=== PATIENT | female | born 1940 | race Caucasian/White ===

== ENCOUNTER 2023-02-08 09:31 | Inpatient (IN) | payer MEDICARE, BC, SELFPAY ==
--- NOTE | ~2023-02-08 | CT_ITS ---
EXAMINATION: CT LE RT wo con, CT pelvis wo con DATE: 02/08/2023 14:57 INDICATION: Right hip and femur pain post fall TECHNIQUE: 1. High resolution computed tomography (CT) of the pelvis was performed without intravenous contrast. Additional sagittal and coronal reconstructions were performed. Automated exposure control and itera tive reconstruction technique were employed. The dose-length product was 233.52 mGy-cm. 2. High resolution CT of the right femur from the hip through the knee was performed without intraven ous contrast. Additional sagittal and coronal reconstructions were employed. Automated exposure contr ol and iterative reconstruction technique were employed. The dose length product was 1077.31 mGy-cm. COMPARISON: Radiographs dated 02/08/2023 FINDINGS: Right total hip arthroplasty which appears well seated in near-anatomic alignment. Subtle nondisplace d periprosthetic fracture extending obliquely from superolateral to inferomedial across the subtrocha nteric proximal right femur at the level of the mid third of the femoral stem. There is no abnormal l ucency surrounding the components. No other fractures identified in the pelvis or visualized right le g. 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 Mild disc bulges with only mi nimal to mild central canal stenosis at L4-L5 and L5-S1. Lumbar facet osteoarthritis, severe on the l eft and mild on the right at L4-L5 and severe on the right and moderate on the left at L5-S1. Mild os teoarthritis at the right knee with no joint effusion. No hip joint effusion. The uterus is not ident ified and has likely been surgically resected. Bladder is normal. Multiple sutures along the anterior pelvic wall. IMPRESSION: 1. Right total hip arthroplasty with nondisplaced subtrochanteric periprosthetic fracture. Reviewed, dictated and finalized at location A. IMPRESSION: 1. Right total hip arthroplasty with nondisplaced subtrochanteric periprostheti c fracture.
--- NOTE | ~2023-02-08 | XR_ITS ---
AP and lateral views of the right femur Clinical History: Pain Findings: No acute fracture or dislocation is seen. Osseous alignment is anatomic. Right hip arthropl asty in place. No hardware complication seen. Soft tissues are unremarkable. Impression: No acute abnormality seen. Right hip arthroplasty in place. Reviewed, dictated and finalized at location . Impression: No acute abnormality seen. Right hip arthroplasty in place.
--- NOTE | ~2023-02-08 | XR_ITS ---
EXAMINATION: XR femur RT min 2V DATE: 02/10/2023 08:09 INDICATION: Subtrochanteric fracture of the proximal right femur TECHNIQUE: AP and lateral views of the right femur were obtained. COMPARISON: CT dated 02/08/2023 FINDINGS: Noncemented right total hip arthroplasty with no periprosthetic lucency. Nearly indiscernible nondisp laced oblique subtrochanteric fracture of the proximal right femur with subtle linear lucency. No oth er fractures identified. Normal alignment and nonweightbearing joint space at the right knee with phy siologic amount fluid at the suprapatellar pouch of the right knee. Skin skye project over the rig ht hemipelvis. IMPRESSION: 1. Right total hip arthroplasty with nondisplaced periprosthetic fracture at the subtrochanteric prox imal right femoral diaphysis. Reviewed, dictated and finalized at location A. IMPRESSION: 1. Right total hip arthroplasty with nondisplaced periprosthetic fracture at th e subtrochanteric proximal right femoral diaphysis.
--- NOTE | ~2023-02-08 | XR_ITS ---
AP view of the pelvis Clinical history: Pain Findings: No acute fracture or dislocation is seen. Right hip arthroplasties in place. No hardware co mplication seen. Left hip joint space is preserved. Soft tissues are unremarkable. Impression: No acute abnormality seen. Right hip arthroplasty in place. Reviewed, dictated and finalized at location . Impression: No acute abnormality seen. Right hip arthroplasty in place.
[2023-02-08 09:40] VITALS: BP 107/58; PULSE 63; RESP 16; TEMP 36.6; O2SAT 98
--- NOTE | 2023-02-08 13:33 | ED.FALL ---
HPI - Fall General Chief Complaint: Fall Stated Complaint: fall/right hip pain Time Seen by Provider: 02/08/23 13:33 Source: patient and family Mode of arrival: wheelchair Limitations: no limitations History of Present Illness HPI Narrative: Gerri is an 82-year-old female patient presenting to the clinic today with complaints of falling out of bed this morning and landing on her right hip. She is reporting right hip and right femur pain. Does have some bruising noted to the dorsal right femur. Rates pain currently a 10/10 when moving. Related Data Allergies Allergy/AdvReac Type Severity Reaction Status Date / Time acetaminophen Allergy Mild Verified 09/25/08 10:58 aspirin Allergy Mild Verified 09/25/08 10:58 clarithromycin Allergy Mild Verified 09/25/08 10:58 codeine Allergy Mild Verified 09/25/08 10:58 meperidine Allergy Mild Verified 09/25/08 10:58 morphine Allergy Mild Verified 09/25/08 10:58 propoxyphene Allergy Mild Verified 09/25/08 10:58 Sulfa (Sulfonamide Allergy Mild Verified 09/25/08 10:58 Antibiotics) sumatriptan Allergy Mild Verified 09/25/08 10:58 PCN Allergy Mild Uncoded 02/10/08 18:41 Review of Systems Review of Systems: Pertinent positives per HPI. Patient denies any fever, chills, rash, headache, visual changes, dizziness, cough, runny nose, sore throat, shortness of breath, chest pain, palpitations, nausea, vomiting, diarrhea, constipation, abdominal pain, or any urinary issues. Exam Narrative: General: Well-developed, well nourished, in no apparent distress Head: Normocephalic, atraumatic. Cardio: Regular rate and rhythm, s1 and s2 normal, no murmur appreciated. Resp: Clear to auscultation bilaterally, no rhonchi, rales, wheezing or rubs. Musculoskeletal: No deformity, 2 small areas the size of a golf ball of bruising noted to the right proximal femur, tender to palpation over the dorsal femur and the right lateral hip, unable to flex right hip with out a great amount of pain in the right femur and hip, muscle strength strong and equal, peripheral pulse strong, no edema, no cyanosis Course Vital Signs Vital signs: Vital Signs Temperature 36.6 C 02/08/23 09:40 Pulse Rate 63 02/08/23 09:40 Respiratory Rate 16 02/08/23 09:40 Blood Pressure 107/58 L 02/08/23 09:40 Pulse Oximetry 98 02/08/23 09:40 Temperature 36.6 C 02/08/23 09:40 Pulse Rate 63 02/08/23 14:01 Respiratory Rate 20 02/08/23 14:01 Blood Pressure 176/78 H 02/08/23 14:01 Pulse Oximetry 98 02/08/23 14:01 MDM - Fall MDM Narrative Medical decision making narrative: At the time of visit patient is resting on the exam table. X-rays of the right femur and right hip were performed and were negative for any sign of fracture or malalignment. Patient is rating her pain currently a 10 at 10 upon palpation. Will get a CT to rule out a stress fracture to the pelvis and right lower extremity. CT shows a right total hip arthroplasty with a nondisplaced subtrochanteric periprosthetic fracture. EKG shows Sinus rhythm with pvcs- HR 68. CBC and CMP completed. Contacted Dr. Callahan- orthopedic provider who had completed the surgery back in the . Discuss treatment with the patient and he recommends the patient be admitted to the hospitalist and consult Dr. Serrano. Contacted Dr. Vasquez and he accepts patient for inpatient admit Differential Diagnosis Differential diagnosis: Likely other ( pelvis fracture, femur fracture, hip contusion, femur contusion , displaced arthroplasty) ECG Data EKG #1: Attestation: I personally reviewed and interpreted this ECG as follows: ECG completion date: 02/08/23 Interpretation: EKG shows sinus rhythm with frequent PVCs with an incomplete right bundle-branch block. Heart rate 60 beats per minute, SC interval is 154 milliseconds, QRS durations and 96 milliseconds, QT -QTC is 379-396 muscle Discharge Plan Discharge Clinical Impression:
[2023-02-08] MEDS: traMADol HCL (*CRX) 25 MG TABLET PO (13:56)
[2023-02-08] MEDS: ONDANSETRON HCL ODT 4 MG TABLET PO (13:56)
[2023-02-08 14:01] VITALS: BP 176/78; PULSE 63; RESP 20; O2SAT 98
--- NOTE | 2023-02-08 16:25 | ECG_ITS ---
Measurements Intervals [place] Rate: 68 P: -20 WA: 154 QRS: -19 QRSD: 96 T: 62 QT: 379 QTc: 404 Interpretive Statements SINUS RHYTHM WITH FREQUENT VENTRICULAR PREMATURE COMPLEXES INCOMPLETE RIGHT BUNDLE BRANCH BLOCK [90+ ms QRS DURATION, TERMINAL R IN V1/V2, 40+ ms S IN I/aVL/V4/V5/V6] ABNORMAL ECG NO PREVIOUS ECG AVAILABLE FOR COMPARISON Electronically Signed On 02-09-2023 9:15:08 CDT by Tripp Unger M.D.
[2023-02-08 17:05] LABS: Eosinophils Percent Auto 0.2 % (0-4.4); Hematocrit 33.2 % (37.0-47.0); Hemoglobin 10.7 g/dL (12.0-15.0); Immature Granulocyte Absolute 0.01 K/mm3 (0.00-0.031); Immature Granulocyte Percent A 0.2 % (0-0.5); Lymphocytes Absolute Auto 1.03 K/mm3 (0.9-3.2); Lymphocytes Percent Auto 17.4 % (18.3-44.2); Mean Corpuscular HGB Conc 32.2 g/dl (32-36); Mean Corpuscular Hemoglobin 30.2 pg (26-34); Mean Corpuscular Volume 93.8 fl (80-100); Mean Platelet Volume 10.9 fl (7.4-10.4); Monocytes Absolute Auto 0.6 K/mm3 (0.1-0.6); Monocytes Percent Auto 9.8 % (2.6-8.5); Neutrophils Absolute Auto 4.3 K/mm3 (1.3-6.7); Neutrophils Percent Auto 72.4 % (45.5-73.1); Platelet Count Result 171 k/mm3 (150-375); Red Blood Count 3.54 M/mm3 (4.2-5.4); Red Cell Distribution Width 15.8 % (11.5-14.5); White Blood Count 5.9 K/mm3 (4.5-10.0)
[2023-02-08 17:16] LABS: Alanine Aminotransferase 21 U/L (6-35); Albumin Level 4.6 g/dL (3.5-5.1); Alkaline Phosphatase 86 U/L (38-126); Anion Gap 7 mmol/L (8-16); Aspartate Amino Transferase 38 U/L (14-36); Bilirubin,Total 0.9 mg/dL (0.2-1.3); Blood Urea Nitrogen 20 mg/dL (7-17); Calcium 9.3 mg/dL (8.4-10.2); Carbon Dioxide 27 mmol/L (22-30); Chloride 104 mmol/L (98-107); Estimated CRCL calculation 62 ml/min; Estimated Glomerular Filt Rate > 60; Glucose 101 mg/dL (65-110); Sodium 138 mmol/L (137-145)
--- NOTE | 2023-02-08 18:04 | PM.IMHP ---
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 Patient fell out of bed in the morning, landed on right hip, sustained severe right hip pain. Patient cannot stand up and walk. Patient denies hitting head, loss consciousness, chest pain, shortness rest, palpitation. Patient was brought to ED for evaluation treatment. In the ED, patient was found to have severe pain over right hip, uncontrolled hypertension, anemia 10.7, elevated BUN. CT was done, and it revealed right total hip arthroplasty with nondisplaced subtrochanteric periprosthetic fracture. EKG shows sinus rhythm with frequent PVCs with an incomplete right bundle-branch block.? Heart rate 60 beats per minute. ER physician consulted orthopedic surgeon Dr. Callahan- orthopedic provider who had completed the surgery back in the .? he recommends the patient be admitted to the hospitalist and consult Dr. Serrano.?? Review of Systems Review of Systems: RS negative except above PMFSH Social History Social History Smoking status: Never smoker Alcohol intake: never Substance use: never Lack of Transportation: No Lack of Food: Never True Current Housing: I Have Housing Concerned About Future Housing: No Difficulty Paying Gas/Electric Bills: No Difficulty Paying for Meds: No Currently Unemployed: No Education: High School Diploma/GED Difficulty w/ Childcare or Family Care: No Spiritual care concerns: No Meds Home Medications and Allergies Home Medications Medication Instructions Recorded Confirmed Type allopurinol 300 mg tablet 300 mg PO DAILY 02/08/23 02/08/23 History citalopram 10 mg tablet 10 mg PO DAILY 02/08/23 02/08/23 History clopidogrel 75 mg tablet 75 mg PO DAILY 02/08/23 02/08/23 History colchicine (gout) 0.6 mg tablet 0.6 mg PO DAILY 02/08/23 02/08/23 History (Colcrys) levothyroxine 100 mcg tablet 100 mcg PO DAILY 02/08/23 02/08/23 History pantoprazole 40 mg tablet,delayed 40 mg PO QAM 02/08/23 02/08/23 History release rosuvastatin 40 mg tablet 20 mg PO DAILY 02/08/23 02/08/23 History Allergies Allergy/AdvReac Type Severity Reaction Status Date / Time acetaminophen Allergy Mild Verified 09/25/08 10:58 aspirin Allergy Mild Verified 09/25/08 10:58 clarithromycin Allergy Mild Verified 09/25/08 10:58 codeine Allergy Mild Verified 09/25/08 10:58 meperidine Allergy Mild Verified 09/25/08 10:58 morphine Allergy Mild Verified 09/25/08 10:58 propoxyphene Allergy Mild Verified 09/25/08 10:58 Sulfa (Sulfonamide Allergy Mild Verified 09/25/08 10:58 Antibiotics) sumatriptan Allergy Mild Verified 09/25/08 10:58 PCN Allergy Mild Uncoded 02/10/08 18:41 Vital Signs Vital Signs - 24 hr 02/08/23 09:40 02/08/23 14:01 Temperature 97.8 F Pulse Rate 63 63 Respiratory Rate 16 20 Blood Pressure 107/58 L 176/78 H Pulse Oximetry 98 98 Exam Narrative: GENERAL: Pleasant, in no acute distress. Well-nourished. - EYES: EOMI. Anicteric. - HENT: Moist mucous membranes. - LUNGS: Clear to auscultation bilaterally, no wheezing, rhonchi, or rales. - CARDIOVASCULAR: Regular rate and rhythm. No murmur. No JVD. - ABDOMEN: Soft, non-tender and non-distended. No palpable masses. - EXTREMITIES: No edema. Peripheral pulses 2+. 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 Appropriate mood and affect. - SKIN: No rashes or lesions. Warm. - LYMPH: No cervical lymphadenopathy. H&P: Results Labs Labs: Short CBC 02/08/23 Range/Units
[2023-02-08] MEDS: LACTATED RINGERS 1,000 ML 100 ML IV CONT (19:44)
[2023-02-08] MEDS: IBUPROFEN IV 400 MG in SODIUM CHLORIDE 0.9% IV 100 ML 208 MG IVPB (19:45)
[2023-02-08] MEDS: traMADol HCL (*CRX) 50 MG TABLET PO (19:45)
[2023-02-08] MEDS: ACETAMINOPHEN 325 MG TABLET 650 MG PO (19:45)
--- NOTE | 2023-02-08 20:05 | ADMGEN ---
This patient, Gerri Rodriguez, was admitted to Medical Room 348-01. Patient/family oriented to hospital policies and general routines including ID bracelet, bed and alarms, visiting hours, pain management, procedures, bathroom and other care routines, personal items, smoking policy, room service/diet, and visiting hours. Information on how to activate the Rapid Response Team has been discussed. Patient/Family are encouraged to report perceived risks to care and to ask questions if they do not understand what they are told or what they should do.
[2023-02-08 20:11] VITALS: BP 157/63; PULSE 64; RESP 16; TEMP 36.9; O2SAT 96
[2023-02-08 21:06] VITALS: O2SAT 96
[2023-02-08 21:07] LABS: Iron 123 ug/dL (37-170)
--- NOTE | 2023-02-08 21:10 | PM.CNOR ---
Assessment and Plan Assessment and plan (1) Periprosthetic fracture around internal prosthetic hip joint: Code(s): M97.8XXA - Periprosthetic fracture around other internal prosthetic joint, initial encounter; Z96.649 - Presence of unspecified artificial hip joint Status: Acute Assessment and Plan: Patient is an 82-year-old female that I have not seen for many years. She is admitted after falling out of bed. She lives at home by herself. She fell out of bed landed onto her right hip and had severe pain in the proximal right thigh hip area cannot tolerate any slight movement of the right lower extremity which causes intense exacerbation of her pain. She was brought to the [facility] Emergency Room where she had a thorough evaluation. X-rays of the right hip initially were negative. CT scan of right femur and pelvis was obtained and this shows nondisplaced fracture lines in the subtrochanteric region of the right femur. There is a long femoral stem in place in growth and the fracture lines are in the mid portion of the stem. The distal 40% of the stem shows no signs of loosening from the shaft. The fracture lines are oblique and completely nondisplaced. I suspect these travel to the proximal femur but where they come out in the region of the intertrochanteric and femoral neck calcar area is unclear. She has no fracture around the acetabular component which is normally aligned and well fixed. She has a history of a stroke and mild hemiplegia affecting the right side and expressive aphasia. She takes Plavix for this for prophylaxis against further stroke. The stroke was approximately 30 years ago. She had undergone total hip replacement in [place] and some in 1998 after a dislocation of her right hip replacement which had dislocated multiple times and she underwent revision surgery. This was in 1998 and the reason revision surgery was done by myself and I do not have an operative note for that but I believe that the acetabular component was revised to improve stability and she healed without complication and she has had no further dislocations fortunately. She has not had any problems with the right hip so I have not seen her in follow-up for at least 10 years. As the fracture lines are nondisplaced, it is possible that the femoral component is still stable inside the femoral shaft with there is no fracture. This is be considered a type B periprosthetic fracture nondisplaced. I have explained her that if the femoral component demonstrates that it is loose relative to the shaft and rotates, she would need a complex revision surgery and internal fixation of the fracture with a very long stem prosthesis and I would refer her to of the tertiary care hospitals for this as this is outside my area of expertise. However, I think there is a very good chance that these fracture lines will heal over the next 6 weeks and the stem is not loose the fracture lines heal she may do very well, become asymptomatic and not need a major revision surgery. She states she has a history of DVT couple of years ago. This was in her leg and she had marked leg swelling associated with that was on strong blood thinner for period of time. She refuses to wear the SCD on the right leg because when it inflate sick causes movement of the leg which causes severe pain on the right proximal thigh therefore we will start her on some anticoagulation tonight. She has a hemoglobin at admission of 10.7 suggesting chronic anemia. Normal MCV. Her anemia is of uncertain etiology at this time. Her platelets are 171,000. White count normal at 5.9. Creatinine is 0.6. Creatinine clearance 62. Iron was normal ferritin TIBC are pending. Slight elevation of AST at 38 ALT normal at 21 alk-phos normal at 86. Albumin normal at 4.6. Because she is on Plavix, and she is elderly, I am reluctantant to place her on a factor 10 a inhibitor for DVT prophylaxis which might increase the risk
[2023-02-08 21:42] LABS: Percent Iron Saturation 26 % (20-50)
[2023-02-08] MEDS: ENOXAPARIN 30 MG/0.3 ML SYRINGE SUB-Q (21:47)
[2023-02-08] MEDS: oxyCODONE/ACETAMINOPHEN (*CRX) 5-325 MG TABLET 1 TABLET PO (21:47)
[2023-02-08] MEDS: ONDANSETRON INJ 4 MG/2 ML VIAL IV PUSH (22:40)
[2023-02-09] MEDS: traMADol HCL (*CRX) 50 MG TABLET PO ×2 (00:01→03:42)
[2023-02-09] MEDS: IBUPROFEN IV 400 MG in SODIUM CHLORIDE 0.9% IV 100 ML 208 MG IVPB (01:50)
[2023-02-09 04:40] VITALS: BP 151/65; PULSE 55; RESP 16; TEMP 36.9; O2SAT 93
[2023-02-09] MEDS: ONDANSETRON INJ 4 MG/2 ML VIAL IV PUSH (05:39)
[2023-02-09] MEDS: HYDROmorphone HCL INJ (*CRX) 1 MG/ML SYR 0.5 MG IV PUSH (05:39)
[2023-02-09 05:56] LABS: Anion Gap 9 mmol/L (8-16); Blood Urea Nitrogen 17 mg/dL (7-17); Calcium 9.2 mg/dL (8.4-10.2); Carbon Dioxide 26 mmol/L (22-30); Chloride 103 mmol/L (98-107); Estimated CRCL calculation 54 ml/min; Estimated Glomerular Filt Rate > 60; Glucose 114 mg/dL (65-110); Potassium 3.8 mmol/L (3.4-5.0); Sodium 138 mmol/L (137-145)
--- NOTE | 2023-02-09 09:07 | PC.NURSE ---
Patient is vomiting nonstop. Manager Entry spoke with daughter Halina and she stated that patient does not tolerate pain medication well at all. She stated that patient can really only take tylenol as all other pain medication makes her extremely nauseous and vomit. Manager Entry called hospitalist Konstantin and updated him on the situation. Nausea medications to be order. Manager Entry is holding PO morning medications at this time as patient is vomiting.
[2023-02-09] MEDS: PROCHLORPERAZINE EDISYLATE 10 MG/2 ML VIAL IV PUSH (09:20)
--- NOTE | 2023-02-09 11:21 | PM.IMPN ---
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 PT OT consulted. (2) Elevated blood pressure reading: Code(s): R03.0 - Elevated blood-pressure reading, without diagnosis of hypertension Status: Acute Assessment and Plan: Blood pressures stable but elevated. Continue home medications. Blood pressure reviewed on 02/09 (3) Anemia: Code(s): D64.9 - Anemia, unspecified Status: Acute Assessment and Plan: Normocytic mild anemia hemoglobin 10.7 hematocrit 33.2. Continue to monitor. No prior records available for review. If this drops, consider anemia labs (4) GERD (gastroesophageal reflux disease): Code(s): K21.9 - Gastro-esophageal reflux disease without esophagitis Status: Acute Assessment and Plan: Continue home medication (5) Acquired hypothyroidism: Code(s): E03.9 - Hypothyroidism, unspecified Status: Acute Assessment and Plan: Continue home medication (6) Gout: Code(s): M10.9 - Gout, unspecified Status: Acute Assessment and Plan: Continue home medication no active flare noted at this Plan Difficult to manage pain be causes pain medication makes her vomit. Antiemetics Zofran and Compazine are available p.r.n. PT and OT for rehabilitation recommendations Orthopedics consult appreciate recommendations. Diet: Regular VTE prophylaxis: Lovenox renally adjusted GI prophylaxis: Pantoprazole Medication reconciliation: Completed Analgesia: P.r.n. available, complicated due to side effects Anti emetics: Zofran and Compazine p.r.n. Time Spent With Patient Time with patient: 25 - 35 minutes Subjective Date/time seen: 02/09/23 11:21 Interval history: Patient was sleeping when evaluated, awakens easily to voice. Patient reports that she fell injuring her right hip. She denies any other injury. She states that she has been vomiting a lot because pain medications make her sick to her stomach. Otherwise patient has no complaints. Therapy has been consulted. Orthopedics was consulted will managed non operatively with 6-8 weeks therapy. Review of Systems Review of Systems: All systems reviewed & are unremarkable except as noted in HPI and below Exam Narrative: GENERAL: Pleasant, in no acute distress. Well-nourished. - EYES: EOMI. Anicteric. - HENT: Moist mucous membranes. No cervical lymphadenopathy. - LUNGS: Clear to auscultation bilaterally, no wheezing, rhonchi, or rales. - CARDIOVASCULAR: Regular rate and rhythm. No murmur. No JVD. - ABDOMEN: Soft, non-tender and non-distended. No palpable masses. - EXTREMITIES: No edema. Peripheral pulses 2+. 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 Appropriate mood and affect. - SKIN: No rashes or lesions. Warm. Objective Data Vital Signs Vital Signs: Vital Signs - 24 hr 02/08/23 14:01 02/08/23 20:11 02/08/23 20:00 Temperature 36.9 C Pulse Rate 63 64 Respiratory Rate 20 16 Blood Pressure 176/78 H 157/63 H Pulse Oximetry 98 96 Oxygen Delivery Room Air 02/08/23 21:06 02/09/23 04:40 02/09/23 09:20 Temperature 36.9 C Pulse Rate 55 L Respiratory Rate 16 Blood Pressure 151/65 H Pulse Oximetry 96 93 Oxygen Delivery Room Air Room Air Intake/Output Intake/Output: Intake & Output 02/06/23 02/07/23 02/08/23 02/09/23 23:59 23:59 23:59 23:59 Intake Total 104 404 Output Total 200 550 Balance -96 -146 Meds/Results Medication
[2023-02-09] MEDS: LACTATED RINGERS 1,000 ML 100 ML IV CONT (13:40)
[2023-02-09 13:49] LABS: Vitamin D 25 Hydroxy 34.2 ng/mL
[2023-02-09 14:00] VITALS: BP 147/59; PULSE 62; RESP 14; TEMP 36.1; O2SAT 90
--- NOTE | 2023-02-09 16:13 | PM.PNORT ---
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 After falling out of bed and sustained a nondisplaced periprosthetic right proximal femur fracture around a long-stem femoral component was placed in the mid almost [address] scan shows no signs of displacement of femoral component or fragments. It is unclear whether this is stable or not. She was unable to dangle on the side of the bed today due to pain. Her daughter has advised the nurses not to give the IV ibuprofen because she has had difficulty with oral ibuprofen causing stomach pain in the past. She has been started on omeprazole to protect your stomach. Her daughter understands that the ibuprofen has been ordered IV which may not bother her stomach but she is adamant against it right now. She has not been tolerating the 50 mg tramadol. I have reduced her tramadol to 25 mg every 6 hours. She is taking the Tylenol. We will try to give her her pills with food to help with her stomach. On exam today she was able to extend her knee actively and wiggle her right ankle into dorsiflexion plantar flexion with some vigor with much less discomfort and the proximal thigh today than yesterday. Hopefully this is a sign that her extreme pain is starting to subside and hopefully she will be able to tolerate sitting up in bed and angling tomorrow. Subjective Subjective Date/Time Seen: 02/09/23 16:13 Objective Data Vital Signs Vital Signs: Vital Signs - 24 hr 02/08/23 20:11 02/08/23 20:00 02/08/23 21:06 Temperature 36.9 C Pulse Rate 64 Respiratory Rate 16 Blood Pressure 157/63 H Pulse Oximetry 96 96 Oxygen Delivery Room Air Room Air 02/09/23 04:40 02/09/23 09:20 Temperature 36.9 C Pulse Rate 55 L Respiratory Rate 16 Blood Pressure 151/65 H Pulse Oximetry 93 Oxygen Delivery Room Air Intake/Output Intake/Output: Intake & Output 02/06/23 02/07/23 02/08/23 02/09/23 23:59 23:59 23:59 23:59 Intake Total 104 1524 Output Total 200 550 Balance -96 974 Meds/Results Medications: Active Medications Generic Name Dose Route Start Last Admin Trade Name Glenroy PRN Reason Stop Dose Admin Acetaminophen 650 mg 02/08/23 20:00 02/09/23 15:02 Acetaminophen 325 Mg Tablet PO Not Given Q6H [facility] Allopurinol 300 mg 02/09/23 09:00 02/09/23 09:06 Allopurinol 300 Mg Tablet PO Not Given DAILY [facility] Calcium Citrate 1 tablet 02/09/23 17:00 Calcium Citrate 315 Mg/Vitamin D 250 Units Tab PO BID [facility] Citalopram Hydrobromide 10 mg 02/09/23 09:00 02/09/23 09:06 Citalopram Hydrobromide 10 Mg Tablet PO Not Given DAILY [facility] Clopidogrel Bisulfate 75 mg 02/09/23 09:00 02/09/23 09:06 Clopidogrel Bisulfate 75 Mg Tablet PO Not Given DAILY [facility] Colchicine 0.6 mg 02/10/23 09:00 Colchicine 0.6 Mg Tablet PO DAILY [facility] Enoxaparin Sodium 30 mg 02/08/23 21:25 02/09/23 09:06 Enoxaparin 30 Mg/0.3 Ml Syringe SUB-Q Not Given Q12HR [facility] Hydromorphone HCl 0.5 mg 02/08/23 18:32 02/09/23 05:39 Hydromorphone Hcl Inj (*Crx) 1 Mg/Ml Syr IV PUSH 0.5 mg Q4H PRN Administration Pain Rated 7-10 Ibuprofen 400 mg/ Sodium 104 mls @ 208 mls/hr 02/08/23 20:00 02/09/23 13:59 Chloride IVPB Not Given Q6H [facility] Lactated Ringer's 1,000 mls @ 100 mls/hr 02/08/23 18:30 02/09/23 13:40 Lr - Lactated Ringers Iv IV CONT Infused .Q10H [facility] Infusion Levothyroxine Sodium 100 mcg 02/09/23 06:30 02/09/23 05:43 Levothyroxine Sodium 100 Mcg Tablet PO Not Given DAILY@0630 [facility] Naloxone HCl 0.1 mg 02/08/23 18:30 Naloxone Hcl 0.4 Mg/Ml Vial IV PUSH Q2M PRN Opiate Reversal Ondaarline
[2023-02-09] MEDS: traMADol HCL (*CRX) 25 MG TABLET PO (17:16)
[2023-02-09] MEDS: SENNA/DOCUSATE SODIUM TABLET 2 TAB PO (17:16)
[2023-02-09 20:00] VITALS: PULSE 62; RESP 14; O2SAT 90
[2023-02-09] MEDS: ENOXAPARIN 30 MG/0.3 ML SYRINGE SUB-Q (21:15)
[2023-02-09] MEDS: ACETAMINOPHEN 325 MG TABLET 650 MG PO (21:17)
[2023-02-09 21:49] VITALS: BP 164/71; PULSE 65; RESP 16; TEMP 37.4; O2SAT 93
[2023-02-10] MEDS: traMADol HCL (*CRX) 25 MG TABLET PO ×5 (00:31→23:48)
[2023-02-10] MEDS: LEVOTHYROXINE SODIUM 100 MCG TABLET PO (05:50)
[2023-02-10 05:52] LABS: Anion Gap 5 mmol/L (8-16); Blood Urea Nitrogen 10 mg/dL (7-17); Calcium 9.2 mg/dL (8.4-10.2); Carbon Dioxide 31 mmol/L (22-30); Chloride 101 mmol/L (98-107); Estimated CRCL calculation 54 ml/min; Estimated Glomerular Filt Rate > 60; Glucose 100 mg/dL (65-110); Potassium 3.4 mmol/L (3.4-5.0); Sodium 137 mmol/L (137-145)
[2023-02-10 06:00] VITALS: BP 153/55; PULSE 64; RESP 16; TEMP 36.5; O2SAT 94
--- NOTE | 2023-02-10 07:22 | PM.PNORT ---
Progress Note: A&P Assessment and Plan (1) Periprosthetic fracture around internal prosthetic hip joint: Code(s): M97.8XXA - Periprosthetic fracture around other internal prosthetic joint, initial encounter; Z96.649 - Presence of unspecified artificial hip joint Status: Acute Assessment and Plan: Patient reports significantly less pain today and she does move her right knee a little bit and her ankle quite well. With her expressive aphasia it is a little bit difficult to communicate with her. She does seem to understand clearly. She did say that her pain ?is better?. She is going to try to dangle today. I asked her if she was able to tolerate the 25 mg dose of tramadol last night that we ordered for her and she said no but I see that it was given to her at 5:50 a.m. this morning and she is not having complaints of nausea now and she is also taking Tylenol. We will discontinue the other medications including the ibuprofen Dilaudid and oxycodone that she has ordered p.r.n.. I am going to check some x-rays of the right femur today to make sure there is still no displacement. I think it is very unlikely she is going to be able to actually transfer so I am going to ask the nurses to try doing the Sukhi lift today if she is able to sit and dangle tolerate that. I will be out of town tomorrow morning coming back in to town the evening the following day. Dr. Archer is going to cover for me. Will order a CBC tomorrow morning and will need a CBC 1 week after that to check her platelets since we are using Lovenox. Subjective Subjective Date/Time Seen: 02/10/23 07:22 Objective Data Vital Signs Vital Signs: Vital Signs - 24 hr 02/09/23 09:20 02/09/23 14:00 02/09/23 20:00 Temperature 36.1 C L Pulse Rate 62 62 Respiratory Rate 14 14 Blood Pressure 147/59 H Pulse Oximetry 90 90 Oxygen Delivery Room Air Room Air 02/09/23 21:49 02/10/23 06:00 Temperature 37.4 C 36.5 C Pulse Rate 65 64 Respiratory Rate 16 16 Blood Pressure 164/71 H 153/55 H Pulse Oximetry 93 94 Oxygen Delivery Intake/Output Intake/Output: Intake & Output 08/2802/08/23 02/09/23 02/10/23 23:59 23:59 23:59 23:59 Intake Total 104 1794 600 Output Total 814 597 3825 Balance -96 944 -550 Meds/Results Medications: Active Medications Generic Name Dose Route Start Last Admin Trade Name Freclarisa PRN Reason Stop Dose Admin Acetaminophen 650 mg 02/08/23 20:00 02/10/23 01:10 Acetaminophen 325 Mg Tablet PO Not Given Q6H [facility] Allopurinol 300 mg 02/09/23 09:00 02/09/23 09:06 Allopurinol 300 Mg Tablet PO Not Given DAILY [facility] Calcium Citrate 1 tablet 02/09/23 17:00 02/09/23 17:16 Calcium Citrate 315 Mg/Vitamin D 250 Units Tab PO 1 tablet BID [facility] Administration Citalopram Hydrobromide 10 mg 02/09/23 09:00 02/09/23 09:06 Citalopram Hydrobromide 10 Mg Tablet PO Not Given DAILY [facility] Clopidogrel Bisulfate 75 mg 02/09/23 09:00 02/09/23 09:06 Clopidogrel Bisulfate 75 Mg Tablet PO Not Given DAILY [facility] Colchicine 0.6 mg 02/10/23 09:00 Colchicine 0.6 Mg Tablet PO DAILY [facility] Enoxaparin Sodium 30 mg 02/08/23 21:25 02/09/23 21:15 Enoxaparin 30 Mg/0.3 Ml Syringe SUB-Q 30 mg Q12HR [facility] Administration Hydromorphone HCl 0.5 mg 02/08/23 18:32 02/09/23 05:39 Hydromorphone Hcl Inj (*Crx) 1 Mg/Ml Syr IV PUSH 0.5 mg Q4H PRN Administration Pain Rated 7-10 Ibuprofen 400 mg/ Sodium 104 mls @ 208 mls/hr 02/08/23 20:00 02/10/23 01:10 Chloride IVPB Not Given Q6H [facility] Lactated Ringer's 1,000 mls @ 100 mls/hr 02/08/23 18:30 02/09/23 13:40 Lr - Lactated Ringers Iv IV CONT 100 mls/hr .Q10H [facility] Administration Levothyroxine Sodium 100 mcg 02/09/23 06:30 02/10/23 05:50 Levothyroxine Sodium 100 Mcg Tablet PO 100 mcg DAILY@0630 [facility] Administration Naloxone HCl 0.1 mg 02/08/23 18:30 Naloxone Hcl 0.4 Mg/Ml Vial IV PUSH Q2M PRN
--- NOTE | 2023-02-10 07:34 | PC.NURSE ---
Director Instructional Material called OB admissions and added this patient to Dr. Archer's list as Dr. Romreo will be out of town this weekend.
--- NOTE | 2023-02-10 07:49 | PC.NURSE ---
Patient off of unit to XRAY
--- NOTE | 2023-02-10 08:11 | PC.NURSE ---
Patient returned to unit from XRAY
[2023-02-10] MEDS: ENOXAPARIN 30 MG/0.3 ML SYRINGE SUB-Q ×2 (08:46→21:01)
[2023-02-10] MEDS: SENNA/DOCUSATE SODIUM TABLET 2 TAB PO (08:46)
[2023-02-10] MEDS: allopurinoL 300 MG TABLET PO (08:46)
[2023-02-10] MEDS: CLOPIDOGREL BISULFATE 75 MG TABLET PO (08:46)
[2023-02-10] MEDS: ACETAMINOPHEN 325 MG TABLET 650 MG PO ×3 (08:46→20:59)
[2023-02-10] MEDS: CITALOPRAM HYDROBROMIDE 10 MG TABLET PO (08:46)
[2023-02-10] MEDS: COLCHICINE 0.6 MG TABLET PO (08:46)
[2023-02-10] MEDS: PANTOPRAZOLE 40 MG TABLET PO (08:47)
[2023-02-10] MEDS: ROSUVASTATIN 10 MG TABLET 20 MG PO (08:47)
[2023-02-10] MEDS: polyethylene glycoL 3350 17 GM POWD.PACK PO (08:47)
--- NOTE | 2023-02-10 11:07 | PM.IMPN ---
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 PT OT consulted. (2) Elevated blood pressure reading: Code(s): R03.0 - Elevated blood-pressure reading, without diagnosis of hypertension Status: Acute Assessment and Plan: Blood pressures stable but elevated. Continue home medications. Blood pressure reviewed on 02/09 (3) Anemia: Code(s): D64.9 - Anemia, unspecified Status: Acute Assessment and Plan: Normocytic mild anemia hemoglobin 10.7 hematocrit 33.2. Continue to monitor. No prior records available for review. If this drops, consider anemia labs (4) GERD (gastroesophageal reflux disease): Code(s): K21.9 - Gastro-esophageal reflux disease without esophagitis Status: Acute Assessment and Plan: Continue home medication (5) Acquired hypothyroidism: Code(s): E03.9 - Hypothyroidism, unspecified Status: Acute Assessment and Plan: Continue home medication (6) Gout: Code(s): M10.9 - Gout, unspecified Status: Acute Assessment and Plan: Continue home medication no active flare noted at this Plan Pain control improved with 25 mg tramadol and Tylenol PT and OT for rehabilitation recommendations Planned discharge to [facility] tomorrow as she is doing well with PT and OT today. Orthopedics consult appreciate recommendations. Diet: Regular VTE prophylaxis: Lovenox renally adjusted GI prophylaxis: Pantoprazole Medication reconciliation: Completed Analgesia: P.r.n. available, complicated due to side effects Anti emetics: Zofran and Compazine p.r.n. Time Spent With Patient Time with patient: 25 - 35 minutes Subjective Date/time seen: 02/10/23 11:07 Interval history: Patient was sleeping when evaluated, awakens easily to voice. Patient reports that she fell injuring her right hip. She denies any other injury. She states that she has been vomiting a lot because pain medications make her sick to her stomach. Otherwise patient has no complaints. Therapy has been consulted. Orthopedics was consulted will managed non operatively with 6-8 weeks therapy. 02/10: Patient up in chair at bedside upon evaluation. She worked with therapy and tolerated this fairly well. She got 25 mg take tramadol and Tylenol before therapy which seemed to have helped. She has not vomited today. She will benefit from rehabilitation admission with intense physical therapy. Patient denies any complaints at this time states her right leg is sore whenever she moves it but otherwise she is doing well. Review of Systems Review of Systems: All systems reviewed & are unremarkable except as noted in HPI and below Exam Narrative: GENERAL: Pleasant, in no acute distress. Well-nourished. - EYES: EOMI. Anicteric. - HENT: Moist mucous membranes. No cervical lymphadenopathy. - LUNGS: Clear to auscultation bilaterally, no wheezing, rhonchi, or rales. - CARDIOVASCULAR: Regular rate and rhythm. No murmur. No JVD. - ABDOMEN: Soft, non-tender and non-distended. No palpable masses. - EXTREMITIES: No edema. Peripheral pulses 2+. 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 Appropriate mood and affect. - SKIN: No rashes or lesions. Warm. Objective Data Vital Signs Vital Signs: Vital Signs - 24 hr 02/09/23 14:00 02/09/23 20:00 02/09/23 21:49 Temperature 36.1 C L 37.4 C Pulse Rate 62 62 65 Respiratory Rate 14 14 16 Blood Pressure 147/59 H
[2023-02-10 14:17] VITALS: BP 145/62; PULSE 66; RESP 18; TEMP 36.7; O2SAT 96
[2023-02-10 17:19] VITALS: O2SAT 96
[2023-02-10 21:08] VITALS: BP 126/49; PULSE 68; RESP 18; TEMP 36.9; O2SAT 95
[2023-02-10 22:18] VITALS: O2SAT 96
[2023-02-11] MEDS: ACETAMINOPHEN 325 MG TABLET 650 MG PO ×3 (01:55→13:32)
[2023-02-11 05:15] VITALS: BP 179/69; PULSE 68; RESP 18; TEMP 36.8; O2SAT 92
[2023-02-11] MEDS: traMADol HCL (*CRX) 25 MG TABLET PO ×2 (05:56→11:51)
[2023-02-11] MEDS: LEVOTHYROXINE SODIUM 100 MCG TABLET PO (05:56)
[2023-02-11 07:54] LABS: Anion Gap 5 mmol/L (8-16); Blood Urea Nitrogen 12 mg/dL (7-17); Calcium 9.2 mg/dL (8.4-10.2); Carbon Dioxide 33 mmol/L (22-30); Chloride 98 mmol/L (98-107); Estimated CRCL calculation 54 ml/min; Estimated Glomerular Filt Rate > 60; Glucose 128 mg/dL (65-110); Potassium 3.5 mmol/L (3.4-5.0); Sodium 136 mmol/L (137-145)
[2023-02-11 08:12] LABS: Hematocrit 32.9 % (37.0-47.0); Hemoglobin 10.7 g/dL (12.0-15.0); Mean Corpuscular HGB Conc 32.5 g/dl (32-36); Mean Corpuscular Hemoglobin 30.7 pg (26-34); Mean Corpuscular Volume 94.5 fl (80-100); Mean Platelet Volume 11.1 fl (7.4-10.4); Platelet Count Result 150 k/mm3 (150-375); Red Blood Count 3.48 M/mm3 (4.2-5.4); Red Cell Distribution Width 15.8 % (11.5-14.5); White Blood Count 5.3 K/mm3 (4.5-10.0)
[2023-02-11] MEDS: ENOXAPARIN 30 MG/0.3 ML SYRINGE SUB-Q (08:59)
[2023-02-11] MEDS: polyethylene glycoL 3350 17 GM POWD.PACK PO (09:00)
[2023-02-11] MEDS: SENNA/DOCUSATE SODIUM TABLET 2 TAB PO (09:00)
[2023-02-11] MEDS: ROSUVASTATIN 10 MG TABLET 20 MG PO (09:01)
[2023-02-11] MEDS: PANTOPRAZOLE 40 MG TABLET PO (09:01)
[2023-02-11] MEDS: COLCHICINE 0.6 MG TABLET PO (09:01)
[2023-02-11 09:02] VITALS: RESP 18; O2SAT 92
[2023-02-11] MEDS: allopurinoL 300 MG TABLET PO (09:02)
[2023-02-11] MEDS: CITALOPRAM HYDROBROMIDE 10 MG TABLET PO (09:02)
[2023-02-11] MEDS: CLOPIDOGREL BISULFATE 75 MG TABLET PO (09:02)
--- NOTE | 2023-02-11 09:30 | PM.DS ---
DS: Admitting Diagnosis Discharge Date 02/11/2023 Admitting Diagnosis Accidental fall from bed Closed subtrochanteric fracture of femur Acquired hypothyroidism GERD Anemia Dehydration Elevated blood pressure reading DS: Discharge Diagnosis Discharge Diagnosis Plan Discharge to [facility] as patient has worked with therapy and shown that she is it capable of participating in therapy while maintaining strict toe-touch weight-bearing status of right lower extremity. If at any point she is not capable of maintaining this weight-bearing restriction with a Sukhi lift will be used with some supporting her right leg for transfers. DS: Summary Hospital Course Reason for hospitalization: Patient was admitted to the hospital for right periprostatic hip fracture after an accidental fall from bed. Hospital Course: Patient was evaluated by Orthopedic surgery with decision to treat non operatively. Pain control was problematic as patient has very sensitive stomach and has nausea vomiting with nearly every pain medication. Eventually patient tolerating half dose of tramadol and Tylenol. Patient is been working with physical therapy and occupational therapy and is able to maintain toe-touch weight-bearing only to the right leg. Orthopedics wants to be very strict about maintaining this weight bearing status so patient does not suffer complete break with displacement. This has been [facility] with [facility] and [facility] and they feel confident that patient is able to maintain this restriction. Status at Discharge Cognitive/behavioral status at discharge: Awake and alert with expressive aphasia which is patient's baseline Functional status at discharge: wheelchair bound Time Spent with Patient Time attestation: Total time spent providing and/or coordinating discharge services: Time spent: Greater than 30 minutes Exam Narrative: GENERAL: Pleasant, in no acute distress. Well-nourished. - EYES: EOMI. Anicteric. - HENT: Moist mucous membranes. No cervical lymphadenopathy. - LUNGS: Clear to auscultation bilaterally, no wheezing, rhonchi, or rales. - CARDIOVASCULAR: Regular rate and rhythm. No murmur. No JVD. - ABDOMEN: Soft, non-tender and non-distended. No palpable masses. - EXTREMITIES: No edema. Peripheral pulses 2+. 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 Appropriate mood and affect. - SKIN: No rashes or lesions. Warm. DS: Data Data Completed and Pending Pending studies at discharge: Pelvis CT, lower extremity CT, femur x-ray Labs on day of discharge: Labs from last 24 hours 02/11/23 07:37 WBC 5.3 RBC 3.48 L Hgb 10.7 L Hct 32.9 L MCV 94.5 MCH 30.7 MCHC 32.5 RDW 15.8 H Plt Count 150 MPV 11.1 H Sodium 136 L Potassium 3.5 Chloride 98 Carbon Dioxide 33 H Anion Gap 5 L BUN 12 Creatinine 0.70 Estim Creat Clear Calc 54 Estimated GFR > 60 Glucose 128 H Calcium 9.2 Discharge Plan Discharge Attending physician on discharge: Chato Dill Consulting providers: Manish Romero; Isidoro Archer Discharging Clinician: Alejandro Richardson Anticipated Discharge Date/Time: 02/11/23 08:20 Patient Disposition: Inpatient Rehab Facility Activity: follow weight bearing status and other - see discharge instructions Diet: regular Wound Care Instructions: other - see discharge instructions Discharge Instructions: If patient is willing and able, she could be stood with max assist of 2, touch weight-bearing only on right leg, for pivot transfers bed to chair. The touch weight-bearing status must be strict. If unable to maintain strict touch weight bearing status, Sukhi lift bed to chair transfers with someone supporting right leg. Check CBC o
[2023-02-11 13:22] VITALS: BP 129/59; PULSE 67; RESP 16; TEMP 36.2; O2SAT 98
== END 2023-02-11 14:45 | DRG 536 ==
LOC: ANHED 16:22 → ANH3MED 18:55
PROVIDERS: Hospitalist; Orthopaedic Surgery; Admitting Provider Internal Medicine; Emergency Provider Nurse Practitioner Family; PCP Internal Medicine; Visit Provider Nurse Practitioner
DX: S72.24XA Nondisplaced subtrochanteric fracture of right femur, initial encounter for closed fracture (principal); M97.01XA Periprosthetic fracture around internal prosthetic right hip joint, initial encounter; I69.353 Hemiplegia and hemiparesis following cerebral infarction affecting right non-dominant side; I69.320 Aphasia following cerebral infarction; I69.322 Dysarthria following cerebral infarction; R11.2 Nausea with vomiting, unspecified; T39.95XA Adverse effect of unspecified nonopioid analgesic, antipyretic and antirheumatic, initial encounter; D64.9 Anemia, unspecified; E03.9 Hypothyroidism, unspecified; E86.0 Dehydration; I45.19 Other right bundle-branch block; I10 Essential (primary) hypertension; K21.9 Gastro-esophageal reflux disease without esophagitis; M10.9 Gout, unspecified; W06.XXXA Fall from bed, initial encounter; Z96.641 Presence of right artificial hip joint; Z79.02 Long term (current) use of antithrombotics/antiplatelets; Z86.718 Personal history of other venous thrombosis and embolism
CPT/HCPCS: 36415; 72170; 72192; 73552; 73700; 80048; 80053; 82306; 82728; 83540; 83550; 85025; 85027; 93005; 97161; 97165; 97530; 97535; 99285; A9270; J0780; J1170; J1650; J1741; J2405; J7120